=== PATIENT | male | born 1960 | race Asian ===

== ENCOUNTER 2017-06-06 20:30 | Emergency (ER) | payer MEDICARE ==
[~2017-06-06] VITALS: Ht 185.4 cm; Wt 97.0 kg
[~2017-06-06 20:30] MED LIST: ALLOPURINOL; AMLO10TA2 PO; CIPR500T3 PO; ESOM20CA PO; LORA1TAB PO; LOSA25TA5 PO; LOSARTAN; MORP30TA PO; Maalox/Hyoscyamine/Lidocaine PO; ONDA4TAB10 PO; OXYC-302 PO; POLY17PO5 PO
[2017-06-06 20:36] VITALS: BP 153/92
[2017-06-06] MEDS: HYDROcodone/APAP 5/325 TABLET PO ONE ×2 (22:30→22:43)
[2017-06-06] MEDS ORDERED: HYDROcodone/APAP 5/325 TABLET ONE (22:42)
== END 2017-06-06 22:55 | disposition home or self-care (01) ==
LOC: ED 22:49
DX: S50.01XA Contusion of right elbow, initial encounter (principal); M70.21 Olecranon bursitis, right elbow; S70.11XA Contusion of right thigh, initial encounter; I10 Essential (primary) hypertension; X58.XXXA Exposure to other specified factors, initial encounter; Y93.89 Activity, other specified; Y99.8 Other external cause status; Y92.89 Other specified places as the place of occurrence of the external cause
CPT/HCPCS: 99284

== ENCOUNTER → 2019-12-31 | Outpatient (CLI) | payer MEDICARE ==
[~2019-12-31] MED LIST changes: +ALPRazolam 1MG TAB ONE; -AMLO10TA2 PO; +AMLO10TA8 PO; +GADOTERATE 10 MMOL/20 ML SYR ONE; +LOSA25TA25 PO; -LOSA25TA5 PO; +MORP60TA63 PO
== END | disposition home or self-care (01) ==
LOC: PETCFH 12:38
PROVIDERS: ATTEND Internal Medicine Hematology & Oncology
DX: Z51.11 Encounter for antineoplastic chemotherapy (principal); C48.0 Malignant neoplasm of retroperitoneum; C49.9 Malignant neoplasm of connective and soft tissue, unspecified; N28.9 Disorder of kidney and ureter, unspecified; D63.0 Anemia in neoplastic disease; N18.3 Chronic kidney disease, stage 3 (moderate); R16.0 Hepatomegaly, not elsewhere classified
CPT/HCPCS: 70553; 78815; A9552; A9575

== ENCOUNTER 2020-01-01 07:34 | Day surgery (SDC) | payer MEDICARE ==
[~2020-01-01] VITALS: Ht 185.4 cm; Wt 102.8 kg
[~2020-01-01 07:34] MED LIST changes: -ALPRazolam 1MG TAB ONE; -GADOTERATE 10 MMOL/20 ML SYR ONE; -MORP60TA63 PO
[2020-01-01 08:35] VITALS: BP 170/109
[2020-01-01] MEDS ORDERED: MORP60TA63 PO (08:38)
[2020-01-01] MEDS ORDERED: OXYC-302 PO (08:38)
[2020-01-01] MEDS ORDERED: SODIUM CHLORIDE 0.9% 1,000 ML IV SCH (09:00)
[2020-01-01 09:17] VITALS: BP 163/105
[2020-01-01 09:27] LABS: INTERNATIONAL NORMALIZED RATIO 0.93 (0.93-1.1); PROTHROMBIN TIME 9.8 Seconds (9.6-11.5)
[2020-01-01] MEDS ORDERED: FLUMAZENIL 0.1 MG/1 ML, 5ML ONE (10:04)
[2020-01-01] MEDS ORDERED: NALOXONE 1 MG/ML, 2ML ONE (10:04)
[2020-01-01] MEDS ORDERED: FENTANYL PF 100 MCG/2ML ONE ×2 (10:04)
[2020-01-01] MEDS ORDERED: MIDAZOLAM 1 MG/ML, 5ML ONE (10:04)
== END 2020-01-01 12:20 | disposition home or self-care (01) ==
LOC: OUT 07:34
PROVIDERS: ATTEND Internal Medicine Hematology & Oncology
DX: R16.0 Hepatomegaly, not elsewhere classified (principal); C48.0 Malignant neoplasm of retroperitoneum; D17.79 Benign lipomatous neoplasm of other sites; D63.0 Anemia in neoplastic disease; I12.9 Hypertensive chronic kidney disease with stage 1 through stage 4 chronic kidney disease, or unspecified chronic kidney disease; N18.3 Chronic kidney disease, stage 3 (moderate); F12.10 Cannabis abuse, uncomplicated; Z88.5 Allergy status to narcotic agent; Z90.5 Acquired absence of kidney
CPT/HCPCS: 36415; 47000; 77012; 85610; 88307; 88333; 99156; 99157; J2250; J3010; J7030; J2310

== ENCOUNTER 2020-01-06 15:22 | Emergency (ER) | payer MEDICARE ==
[~2020-01-06] VITALS: Ht 185.4 cm; Wt 103.0 kg
[~2020-01-06 15:22] MED LIST changes: +MORP60TA63 PO
[2020-01-06 16:05] LABS: BASOPHILS # (AUTO) 0.04 x10^3/uL (0-0.1); BASOPHILS % (AUTO) 1 % (0-1); EOSINOPHILS # (AUTO) 0.31 x10^3/uL (0-0.4); EOSINOPHILS % (AUTO) 4 % (1-7); LYMPHOCYTES # (AUTO) 1.53 x10^3/uL (1-3.4); LYMPHOCYTES % (AUTO) 20 % (22-44); MD NO; MEAN CORPUSCULAR HEMOGLOBIN 30.1 pg (27.5-34.5); MEAN CORPUSCULAR HGB CONC 33.4 g/dL (33.2-36.2); MEAN CORPUSCULAR VOLUME 90.3 fL (81-97); MONOCYTES # (AUTO) 0.82 x10^3/uL (0.2-0.8); MONOCYTES % (AUTO) 11 % (2-9); NEUTROPHILS % (AUTO) 65 % (42-75); PLATELET COUNT 287 x10^3/uL (130-400); RED BLOOD COUNT 4.31 x10^6/uL (4.38-5.82); RED CELL DISTRIBUTION WIDTH 14.3 % (9.4-14.8)
[2020-01-06 16:14] LABS: ALBUMIN 3.4 g/dL (3.4-5.0); ANION GAP 6 mmol/L (5-15); CALCIUM 8.5 mg/dL (8.5-10.1); CHLORIDE 108 mmol/L (98-107)
[2020-01-06 16:19] LABS: ALANINE AMINOTRANSFERASE 25 U/L (12-78); ALKALINE PHOSPHATASE 81 U/L (45-117); BILIRUBIN,TOTAL 0.4 mg/dL (0.2-1.0); CREATININE 1.78 mg/dL (0.7-1.3); TOTAL PROTEIN 7.3 g/dL (6.4-8.2)
[2020-01-06 16:21] LABS: MICROSCOPIC AUTO
[2020-01-06 16:58] VITALS: BP 150/92
--- NOTE | 2020-01-06 17:07 | NUR ---
ER ANATOLIY SMYTH AT BEDSIDE, TEST RESULTS AND D/C PLAN DISCUSSED AND QUESTIONS ANSWERED.
--- NOTE | 2020-01-06 17:21 | NUR ---
Patient/Caregiver given discharge instructions and they have confirmed that they understand the instructions. Patient ambulatory with steady gait. PT IN WHEELCHAIR TO D/C.
== END 2020-01-06 17:23 | disposition home or self-care (01) ==
LOC: ED 16:02
DX: R60.0 Localized edema (principal); I11.0 Hypertensive heart disease with heart failure; I50.9 Heart failure, unspecified
CPT/HCPCS: 36415; 71045; 80053; 81001; 83880; 85025; 93970; 99285

== ENCOUNTER 2020-01-15 07:04 | Day surgery (SDC) | payer MEDICARE ==
[~2020-01-15] VITALS: Ht 176.5 cm; Wt 104.5 kg
[2020-01-15] MEDS ORDERED: SODIUM CHLORIDE 0.9% 1,000 ML IV SCH (08:02)
[2020-01-15 08:23] VITALS: BP 160/94
[2020-01-15] MEDS ORDERED: CEFAZOLIN PMX 1GM/50ML 50 ML IV ONE (08:30)
[2020-01-15] MEDS ORDERED: FENTANYL PF 100 MCG/2ML ONE (09:02)
[2020-01-15] MEDS ORDERED: MIDAZOLAM 1 MG/ML, 5ML ONE ×2 (09:02)
[2020-01-15] MEDS ORDERED: NALOXONE 1 MG/ML, 2ML ONE (09:03)
[2020-01-15] MEDS ORDERED: FLUMAZENIL 0.1 MG/1 ML, 5ML ONE (09:03)
[2020-01-15] MEDS ORDERED: LIDOCAINE 1%, 20ML ONE (09:17)
== END 2020-01-15 11:35 | disposition home or self-care (01) ==
LOC: OUT 07:04
PROVIDERS: ATTEND Internal Medicine Hematology & Oncology
DX: C48.0 Malignant neoplasm of retroperitoneum (principal); N18.3 Chronic kidney disease, stage 3 (moderate); F12.90 Cannabis use, unspecified, uncomplicated; Z88.5 Allergy status to narcotic agent; Z85.05 Personal history of malignant neoplasm of liver; Z82.49 Family history of ischemic heart disease and other diseases of the circulatory system
CPT/HCPCS: 36561; 76937; 77001; 99156; 99157; C1788; J0690; J1642; J2250; J3010; J7030; J2310

== ENCOUNTER 2020-02-17 18:46 | Inpatient (IN) | payer MEDICARE ==
[~2020-02-17] VITALS: Ht 185.4 cm; Wt 105.0 kg
--- NOTE | 2020-02-17 19:08 | NUR ---
PT TO ROOM FROM LOBBY
[2020-02-17] MEDS ORDERED: HYDROmorphone 2 MG/ML, 1ML ONE (19:29)
[2020-02-17] MEDS ORDERED: ONDANSETRON 2MG/ML, 2ML ONE (19:29)
[2020-02-17] MEDS ORDERED: SODIUM CHLORIDE FLUSH 10ML SYR IVF ONE (19:30)
[2020-02-17] MEDS ORDERED: ONDANSETRON 2MG/ML, 2ML IVPush ONE (19:30)
[2020-02-17] MEDS: HYDROmorphone 2 MG/ML, 1ML IVPush PRN ×2 (19:54→20:09)
--- NOTE | 2020-02-17 19:59 | NUR ---
RIGHT UPPER CHEST PORT ACCESSED, PT MEDICATED PER AUG.
[2020-02-17 20:05] LABS: MEAN CORPUSCULAR HEMOGLOBIN 29.7 pg (27.5-34.5); MEAN CORPUSCULAR HGB CONC 32.9 g/dL (33.2-36.2); MEAN CORPUSCULAR VOLUME 90.4 fL (81-97); MEAN PLATELET VOLUME 6.8 fL (7.4-10.4); PLATELET COUNT 273 x10^3/uL (130-400); RED BLOOD COUNT 4.02 x10^6/uL (4.38-5.82); RED CELL DISTRIBUTION WIDTH 15.1 % (9.4-14.8)
[2020-02-17 20:17] LABS: ALBUMIN 3.3 g/dL (3.4-5.0); ANION GAP 8 mmol/L (5-15); CALCIUM 8.8 mg/dL (8.5-10.1); CHLORIDE 106 mmol/L (98-107); CREATININE 1.99 mg/dL (0.7-1.3)
[2020-02-17] MEDS ORDERED: KETAMINE 10 MG/ML, 20ML IV ONE (20:19)
[2020-02-17] MEDS ORDERED: KETAMINE 10 MG/ML, 20ML ONE (20:21)
--- NOTE | 2020-02-17 20:32 | NUR ---
elevated creatine, consult josé Patel for CT.
[2020-02-17 20:46] LABS: MD YES
--- NOTE | 2020-02-17 20:46 | NUR ---
PT TRANSPORTED TO CT.
[2020-02-17 20:48] LABS: BAND#(MANUAL) 1.08 x10^3/uL; BANDS%(MANUAL) 5 % (0-7); LYMPH#(MANUAL) 0.43 x10^3/uL (1-3.4); LYMPHS% (MANUAL) 2 % (22-44); MONOS#(MANUAL) 0.86 x10^3/uL (0.3-2.7); MONOS% (MANUAL) 4 % (2-9); SEG#(MANUAL) 19.22 x10^3/uL (1.8-6.8); SEGS% (MANUAL) 89 % (42-75)
[2020-02-17 20:49] LABS: ANISOCYTOSIS 1+
[2020-02-17 20:50] LABS: <PLATELET ESTIMATE> ADEQUATE; SMALL PLATELETS 1+; TOXIC GRAN 1+
--- NOTE | 2020-02-17 20:56 | NUR ---
UNABLE TO LEAVE URINE SAMPLE AT THIS TIME.
[2020-02-17] MEDS ORDERED: MORPHINE SULFATE 4 MG/ML, 1ML IVPush PRN (21:30)
--- NOTE | 2020-02-17 21:30 | NUR ---
CONTINUES TO HAVE PAIN, REPORTED TO MD FOR ORDERS.
[2020-02-17] MEDS ORDERED: MORPHINE SULFATE 4 MG/ML, 1ML ONE (21:32)
[2020-02-17] MEDS ORDERED: CEFTRIAXONE PMX 1GM/50ML 50 ML IV ONE (22:00)
[2020-02-17] MEDS ORDERED: SODIUM CHLORIDE 0.9% 1,000ML IVBOLUS ONE (22:00)
[2020-02-17] MEDS ORDERED: CEFTRIAXONE PMX 1GM/50ML 50 ML ONE (22:05)
[2020-02-17] MEDS ORDERED: ACETAMINOPHEN 325 MG TABLET PO PRN (22:30)
[2020-02-17] MEDS ORDERED: CYCLOBENZAPRINE 10 MG TABLET PO PRN (22:30)
[2020-02-17] MEDS ORDERED: ONDANSETRON 2MG/ML, 2ML IVPush PRN (22:30)
[2020-02-17] MEDS ORDERED: OXYcodone/APAP 5/325MG TABLET PO PRN (22:30)
[2020-02-17] MEDS ORDERED: POLYETHYLENE GLYCOL 17 GM PACKET PO PRN (22:30)
[2020-02-17] MEDS ORDERED: MELATONIN 5 MG TABLET PO PRN (22:30)
[2020-02-17] MEDS ORDERED: hydrALAzine 20 MG/ML, 1ML IVPush PRN (22:30)
[2020-02-17] MEDS ORDERED: DOCUSATE 100 MG CAPSULE PO PRN (22:30)
--- NOTE | 2020-02-17 22:51 | NUR ---
PLEASE CALL JAZZ AT [phone] WHEN UROLOGIST CONSULTS PATIENT.
[2020-02-17] MEDS: LACTATED RINGERS 1,000 ML IV SCH (23:21)
[2020-02-17 23:53] LABS: MICROSCOPIC AUTO
[2020-02-18] MEDS: morphine SULFATE 10 MG/ML, 1ML IVPush PRN ×5 (00:50→08:14)
[2020-02-18 01:28] VITALS: BP 144/87
[2020-02-18 04:44] LABS: MEAN CORPUSCULAR HEMOGLOBIN 29.6 pg (27.5-34.5); MEAN CORPUSCULAR HGB CONC 32.7 g/dL (33.2-36.2); MEAN CORPUSCULAR VOLUME 90.4 fL (81-97); PLATELET COUNT 236 x10^3/uL (130-400); RED BLOOD COUNT 3.88 x10^6/uL (4.38-5.82); RED CELL DISTRIBUTION WIDTH 14.6 % (9.4-14.8)
[2020-02-18 04:52] LABS: ANION GAP 8 mmol/L (5-15); CALCIUM 8.7 mg/dL (8.5-10.1); CHLORIDE 108 mmol/L (98-107)
[2020-02-18 05:51] LABS: MD YES
[2020-02-18 05:53] LABS: <PLATELET ESTIMATE> ADEQUATE; <PLT MORPHOLOGY> NORMAL PLT MORPH; <RBC MORPHOLOGY> NORMAL; BANDS%(MANUAL) 8 % (0-7); EOS#(MANUAL) 0.18 x10^3/uL (0.0-0.4); EOS% (MANUAL) 1 % (1-7); LYMPHS% (MANUAL) 8 % (22-44); MONOS#(MANUAL) 0.53 x10^3/uL (0.3-2.7); MONOS% (MANUAL) 3 % (2-9); SEGS% (MANUAL) 80 % (42-75)
[2020-02-18 08:05] VITALS: BP 115/65
[2020-02-18] MEDS ORDERED: HYDROmorphone 1 MG/ML, 1ML INJ IM PRN (09:00)
[2020-02-18] MEDS: morphine SULFATE 60 MG TABLET.ER PO SCH ×2 (09:37→16:38)
[2020-02-18] MEDS: LACTATED RINGERS 1,000 ML IV SCH (10:16)
[2020-02-18] MEDS ORDERED: CHLORHEXIDINE 15 ML UDC MM ONE (12:00)
[2020-02-18] MEDS ORDERED: MIDAZOLAM 1 MG/ML, 2ML ONE (12:18)
[2020-02-18] MEDS ORDERED: FENTANYL PF 250 MCG/5ML ONE (12:18)
[2020-02-18] MEDS ORDERED: PROMETHAZINE 25 MG/ML, 1ML IVPush PRN (12:30)
[2020-02-18] MEDS ORDERED: hydrALAzine 20 MG/ML, 1ML IV PRN (12:30)
[2020-02-18] MEDS ORDERED: LABETALOL 5MG/ML, 20ML IV PRN (12:30)
[2020-02-18] MEDS ORDERED: PROMETHAZINE 25 MG SUPP PR PRN (12:30)
[2020-02-18] MEDS ORDERED: HYDROmorphone 1 MG/ML, 1ML INJ IVPush PRN (12:30)
[2020-02-18] MEDS ORDERED: ACETAMINOPHEN 325 MG TABLET PO PRN (12:30)
[2020-02-18] MEDS ORDERED: ONDANSETRON 2MG/ML, 2ML IVPush PRN (12:30)
[2020-02-18] MEDS ORDERED: OXYcodone 5 MG/5 ML ORAL.SOL UDC PO PRN (12:30)
[2020-02-18] MEDS ORDERED: FENTANYL PF 100 MCG/2ML IV PRN (12:30)
[2020-02-18] MEDS ORDERED: SUCCINYLCHOLINE 20 MG/ML, 10ML ONE (13:50)
[2020-02-18] MEDS ORDERED: CEFAZOLIN 1,000 MG ONE (13:50)
[2020-02-18] MEDS ORDERED: ONDANSETRON 2MG/ML, 2ML ONE (13:50)
[2020-02-18] MEDS ORDERED: ROCURONIUM 10MG/ML,5ML ONE (13:50)
[2020-02-18] MEDS ORDERED: PROPOFOL 10 MG/ML, 20ML ONE (13:50)
[2020-02-18] MEDS ORDERED: DEXAMETHASONE 4 MG/ML, 1ML ONE (13:50)
[2020-02-18] MEDS ORDERED: GLYCOPYRROLATE 0.2MG/1ML, 5ML ONE (13:50)
[2020-02-18] MEDS ORDERED: NEOSTIGMINE 1 MG/ML, 10ML ONE (13:50)
[2020-02-18 18:45] VITALS: BP 153/94
== END 2020-02-18 19:38 | disposition home or self-care (01) | DRG 660 ==
LOC: ED 21:30 → EDIP 22:03 → 4NE 22:49
PROVIDERS: ADMIT Hospitalist; ATTEND Family Medicine
PROC: 0T778DZ Dilation of Left Ureter with Intraluminal Device, Via Natural or Artificial Opening Endoscopic (ICD-10-PCS; 2020-02-18)
PROC: 0T5B8ZZ Destruction of Bladder, Via Natural or Artificial Opening Endoscopic (ICD-10-PCS; 2020-02-18)
PROC: 0TB78ZX Excision of Left Ureter, Via Natural or Artificial Opening Endoscopic, Diagnostic (ICD-10-PCS; 2020-02-18)
PROC: 0TC78ZZ Extirpation of Matter from Left Ureter, Via Natural or Artificial Opening Endoscopic (ICD-10-PCS; principal; 2020-02-18 14:30)
DX: N13.2 Hydronephrosis with renal and ureteral calculous obstruction (principal); I13.0 Hypertensive heart and chronic kidney disease with heart failure and stage 1 through stage 4 chronic kidney disease, or unspecified chronic kidney disease; F11.20 Opioid dependence, uncomplicated; C48.0 Malignant neoplasm of retroperitoneum; C78.7 Secondary malignant neoplasm of liver and intrahepatic bile duct; C79.89 Secondary malignant neoplasm of other specified sites; N17.9 Acute kidney failure, unspecified; N18.3 Chronic kidney disease, stage 3 (moderate); M17.12 Unilateral primary osteoarthritis, left knee; I50.9 Heart failure, unspecified; G89.4 Chronic pain syndrome; D72.825 Bandemia; D63.8 Anemia in other chronic diseases classified elsewhere; K86.9 Disease of pancreas, unspecified; N32.9 Bladder disorder, unspecified; D72.829 Elevated white blood cell count, unspecified; Z80.0 Family history of malignant neoplasm of digestive organs; Z92.21 Personal history of antineoplastic chemotherapy; Z90.5 Acquired absence of kidney; Z87.442 Personal history of urinary calculi; Z85.89 Personal history of malignant neoplasm of other organs and systems
CPT/HCPCS: 36415; 74018; 74176; 76000; 80048; 81001; 82040; 82360; 83605; 83690; 83735; 84145; 84443; 85025; 87040; 87635; 88300; 88305; 93005; 96374; 96375; 96376; C1726; G0378; J0690; J0696; J1100; J1170; J2250; J2405; J2704; J2710; J3010; C2617; J0330; J2270; J7030; J7120

== ENCOUNTER 2020-04-18 00:05 | Emergency (ER) | payer MEDICARE ==
[~2020-04-18] VITALS: Ht 185.4 cm; Wt 103.8 kg
--- NOTE | 2020-04-18 00:30 | NUR ---
PT AND AMBULATORY TO ROOM AT THIS TIME.
--- NOTE | 2020-04-18 00:58 | NUR ---
60 YO M CC OF BILAT FOOT SWELLING AND PAIN. STATES HE STEPPED ON GOAT HEADS A FEW DAYS AGO. PT WITH HX OF CANCER, CURRENTLY RECEIVING CHEMO Q2 WEEKS ON TUESDAYS WITH NEXT APPOITMENT THIS MONDAY
--- NOTE | 2020-04-18 00:58 | NUR ---
PT IN RAD
[2020-04-18] MEDS ORDERED: SODIUM CHLORIDE FLUSH 10ML SYR IVF ONE (01:00)
[2020-04-18] MEDS ORDERED: ONDANSETRON 2MG/ML, 2ML IVPush ONE (01:00)
[2020-04-18 02:13] LABS: MEAN CORPUSCULAR HEMOGLOBIN 28.3 pg (27.5-34.5); MEAN CORPUSCULAR HGB CONC 31.8 g/dL (33.2-36.2); MEAN PLATELET VOLUME 6.8 fL (7.4-10.4); PLATELET COUNT 188 x10^3/uL (130-400); RED BLOOD COUNT 3.28 x10^6/uL (4.38-5.82); RED CELL DISTRIBUTION WIDTH 21.4 % (9.4-14.8)
[2020-04-18 02:20] LABS: ALANINE AMINOTRANSFERASE 31 U/L (12-78); ALBUMIN 2.9 g/dL (3.4-5.0); ANION GAP 7 mmol/L (5-15); CALCIUM 7.9 mg/dL (8.5-10.1); CHLORIDE 112 mmol/L (98-107); CREATININE 1.44 mg/dL (0.7-1.3)
[2020-04-18 02:24] LABS: ALKALINE PHOSPHATASE 77 U/L (45-117); BILIRUBIN,TOTAL 0.3 mg/dL (0.2-1.0); TOTAL PROTEIN 6.1 g/dL (6.4-8.2)
[2020-04-18 02:39] LABS: MD YES
[2020-04-18] MEDS ORDERED: MORPHINE SULFATE 4 MG/ML, 1ML ONE ×2 (02:43→04:05)
[2020-04-18] MEDS: MORPHINE SULFATE 4 MG/ML, 1ML IVPush PRN ×2 (02:45→04:07)
[2020-04-18 02:49] LABS: BAND#(MANUAL) 0.12 x10^3/uL; BANDS%(MANUAL) 4 % (0-7); BASOS#(MANUAL) 0.06 x10^3/uL (0-0.1); BASOS% (MANUAL) 2 % (0-1); EOS#(MANUAL) 0.06 x10^3/uL (0.0-0.4); EOS% (MANUAL) 2 % (1-7); LYMPH#(MANUAL) 0.84 x10^3/uL (1-3.4); LYMPHS% (MANUAL) 27 % (22-44); METAMYELOCYTES# (MANUAL) 0.03 x10^3/uL (0-0); METAMYELOCYTES% (MANUAL) 1 % (0-1); MONOS#(MANUAL) 0.31 x10^3/uL (0.3-2.7); MONOS% (MANUAL) 10 % (2-9); SEG#(MANUAL) 1.61 x10^3/uL (1.8-6.8); SEGS% (MANUAL) 52 % (42-75)
[2020-04-18 02:50] LABS: OTHER CELLS # (MANUAL) 0.06 x10^3/uL (0-0); OTHER CELLS % (MANUAL) 2 % (0-0)
[2020-04-18 02:51] LABS: ANISOCYTOSIS 1+; POLYCHROMASIA 1+
[2020-04-18 02:53] LABS: <PLATELET ESTIMATE> ADEQUATE; <PLT MORPHOLOGY> NORMAL PLT MORPH
--- NOTE | 2020-04-18 03:09 | NUR ---
PT GIVEN WARM BLANKETS AND MEDICATED FOR PAIN
--- NOTE | 2020-04-18 04:20 | NUR ---
AT BEDSIDE TO DISCUSS RAD RESULTS. PT STATES GOAT HEADS ARE STILL STUCK IN FEET FROM STEPPING IN THEM ALMOST 3 WEEKS AGO. NO FORIEGN OBJECTS NOTED IN FEET UPON RN ASSESSMENTS.
[2020-04-18 05:00] VITALS: BP 149/85
== END 2020-04-18 05:20 | disposition home or self-care (01) ==
LOC: ED 01:29
DX: L03.115 Cellulitis of right lower limb (principal); L03.116 Cellulitis of left lower limb; C49.9 Malignant neoplasm of connective and soft tissue, unspecified; D63.0 Anemia in neoplastic disease; R07.9 Chest pain, unspecified; R94.31 Abnormal electrocardiogram [ECG] [EKG]; I50.9 Heart failure, unspecified; Z90.89 Acquired absence of other organs
CPT/HCPCS: 36415; 71045; 73630; 80053; 83880; 84145; 85025; 87040; 93005; 93970; 96374; 96376; 99285; J2270

== ENCOUNTER 2020-05-28 10:55 | Outpatient (CLI) | payer MEDICARE ==
[~2020-05-28 10:55] MED LIST changes: +AMLO-211 PO; -AMLO10TA8 PO; -CIPR500T3 PO; +CIPR500T4 PO; -OXYC-302 PO; +OXYC1TAB14 PO
[2020-07-29] MEDS ORDERED: PALB75TA PO (15:54)
[2020-07-29] MEDS ORDERED: GABA300C PO (15:54)
[2020-07-29] MEDS ORDERED: ONDA4TAB7 PO (15:55)
[2020-07-29] MEDS ORDERED: FURO-93 PO (15:55)
[2020-08-01] MEDS ORDERED: OXYC5TAB98 PO ×5 (11:33→11:55)
[2020-08-01] MEDS ORDERED: METH-640 PO (11:33)
== END 2020-05-28 23:59 | disposition home or self-care (01) ==
LOC: RAD 10:55
PROVIDERS: ATTEND Internal Medicine Hematology & Oncology
DX: C48.0 Malignant neoplasm of retroperitoneum (principal); K31.89 Other diseases of stomach and duodenum; R16.0 Hepatomegaly, not elsewhere classified; E27.49 Other adrenocortical insufficiency; Z90.5 Acquired absence of kidney
CPT/HCPCS: 74150

== ENCOUNTER 2020-07-22 13:57 | Emergency (ER) | payer MEDICARE ==
[~2020-07-22] VITALS: Ht 182.9 cm; Wt 96.3 kg
[~2020-07-22 13:57] MED LIST changes: +CIPR500T3 PO; -CIPR500T4 PO
[2020-07-22] MEDS ORDERED: ONDANSETRON 2MG/ML, 2ML IVPush ONE (15:00)
[2020-07-22 15:07] LABS: BASOPHILS % (AUTO) 1 % (0-1); EOSINOPHILS % (AUTO) 1 % (1-7); LYMPHOCYTES % (AUTO) 27 % (22-44); MEAN CORPUSCULAR HEMOGLOBIN 29.3 pg (27.5-34.5); MEAN CORPUSCULAR HGB CONC 33.7 g/dL (33.2-36.2); MEAN PLATELET VOLUME 6.9 fL (7.4-10.4); MONOCYTES % (AUTO) 9 % (2-9); NEUTROPHILS % (AUTO) 62 % (42-75); PLATELET COUNT 329 x10^3/uL (130-400); RED BLOOD COUNT 4.52 x10^6/uL (4.38-5.82)
[2020-07-22 15:11] LABS: MD NO
[2020-07-22 15:15] LABS: ALANINE AMINOTRANSFERASE 28 U/L (12-78); ALBUMIN 3.8 g/dL (3.4-5.0); ANION GAP 6 mmol/L (5-15); CALCIUM 8.8 mg/dL (8.5-10.1); CHLORIDE 108 mmol/L (98-107); CREATININE 1.94 mg/dL (0.7-1.3)
[2020-07-22 15:17] LABS: ALKALINE PHOSPHATASE 76 U/L (45-117); BILIRUBIN,TOTAL 0.4 mg/dL (0.2-1.0); TOTAL PROTEIN 7.5 g/dL (6.4-8.2)
--- NOTE | 2020-07-22 15:24 | NUR ---
PT WANTS PAIN MEDS BEFORE CT
[2020-07-22] MEDS ORDERED: HYDROmorphone 1 MG/ML, 1ML INJ ONE ×3 (15:29→17:19)
[2020-07-22] MEDS ORDERED: ONDANSETRON 2MG/ML, 2ML ONE (15:29)
[2020-07-22] MEDS: HYDROmorphone 2 MG/ML, 1ML IVPush PRN ×2 (15:55→16:55)
--- NOTE | 2020-07-22 16:53 | NUR ---
PT MEDICATED PER AUG. PT RESTING IN BED WITH AT PT SIDE. PT VSS
[2020-07-22] MEDS ORDERED: DEXAMETHASONE 4 MG/ML, 1ML IVPush ONE (17:00)
[2020-07-22] MEDS ORDERED: DEXAMETHASONE 4 MG/ML, 1ML ONE (17:10)
[2020-07-22] MEDS ORDERED: HYDROmorphone 2 MG/ML, 1ML IVPush PRN (17:30)
[2020-07-22 17:48] VITALS: BP 132/84
== END 2020-07-22 17:49 | disposition home or self-care (01) ==
LOC: ED 17:40
DX: M51.26 Other intervertebral disc displacement, lumbar region (principal); M54.16 Radiculopathy, lumbar region; M54.41 Lumbago with sciatica, right side; G89.29 Other chronic pain
CPT/HCPCS: 36415; 72131; 72192; 80053; 85025; 96374; 96375; 96376; 99285; J1100; J1170; J2405

== ENCOUNTER → 2020-09-09 | Outpatient (CLI) | payer MEDICARE ==
[~2020-09-09] MED LIST changes: +ALPR1TAB2 PO; -CIPR500T3 PO; +CIPR500T4 PO; +FURO-93 PO; +GABA300C PO; +METH-640 PO; +ONDA4TAB7 PO; +OXYC5TAB98 PO; +PALB75TA PO
== END | disposition home or self-care (01) ==
LOC: RAD 10:23
PROVIDERS: ATTEND Internal Medicine Hematology & Oncology
DX: C48.0 Malignant neoplasm of retroperitoneum (principal); K76.89 Other specified diseases of liver
CPT/HCPCS: 74181

== ENCOUNTER 2020-10-07 21:47 | Emergency (ER) | payer MEDICARE ==
[~2020-10-07] VITALS: Ht 185.4 cm; Wt 104.0 kg
--- NOTE | 2020-10-07 22:50 | NUR ---
PT TO CT
[2020-10-07] MEDS ORDERED: SODIUM CHLORIDE FLUSH 10ML SYR IVF ONE (23:00)
[2020-10-07] MEDS ORDERED: SODIUM CHLORIDE 0.9% 1,000ML IVBOLUS ONE (23:00)
[2020-10-07 23:28] LABS: BASOPHILS % (AUTO) 1 % (0-1); EOSINOPHILS % (AUTO) 2 % (1-7); LYMPHOCYTES % (AUTO) 27 % (22-44); MEAN CORPUSCULAR HEMOGLOBIN 32.3 pg (27.5-34.5); MEAN CORPUSCULAR HGB CONC 35.4 g/dL (33.2-36.2); MEAN PLATELET VOLUME 6.8 fL (7.4-10.4); MONOCYTES % (AUTO) 11 % (2-9); NEUTROPHILS % (AUTO) 60 % (42-75); PLATELET COUNT 213 x10^3/uL (130-400); RED BLOOD COUNT 3.91 x10^6/uL (4.38-5.82); RED CELL DISTRIBUTION WIDTH 16.7 % (9.4-14.8)
[2020-10-07 23:30] LABS: MD NO
[2020-10-07 23:34] LABS: ALANINE AMINOTRANSFERASE 30 U/L (12-78); ALBUMIN 3.4 g/dL (3.4-5.0); ANION GAP 7 mmol/L (5-15); CALCIUM 8.9 mg/dL (8.5-10.1); CHLORIDE 108 mmol/L (98-107); CREATININE 1.38 mg/dL (0.7-1.3)
--- NOTE | 2020-10-07 23:34 | NUR ---
TASK RN: PORT ACCESSED FROM WHICH 1 SET OF BLOOD CULTURES OBTAINED 1L NS THEN ADMINISTERED PER EMAR PATIENT/SPOUSE UPDATED ON ESTIMATED POC SPOUSE WANTED TO CONVEY THAT PATIENT SPECIALISTS HAVE CONVEYED HE SHOULD NOT HAVE CT CONTRAST HE ONLY HAS 1 KIDNEY NOW. ERP MADE AWARE
[2020-10-07 23:39] LABS: ALKALINE PHOSPHATASE 68 U/L (45-117); BILIRUBIN,TOTAL 0.5 mg/dL (0.2-1.0); TOTAL PROTEIN 6.7 g/dL (6.4-8.2); TROPONIN I < 0.015 ng/mL (0.000-0.045)
--- NOTE | 2020-10-08 01:03 | NUR ---
REPORT RECIEVED FROM TITO MUNIZ
[2020-10-08 01:13] VITALS: BP 150/88
== END 2020-10-08 01:30 | disposition home or self-care (01) ==
LOC: ED 22:29
DX: K52.89 Other specified noninfective gastroenteritis and colitis (principal); C49.9 Malignant neoplasm of connective and soft tissue, unspecified; R10.84 Generalized abdominal pain; R51.9 Headache, unspecified; R94.31 Abnormal electrocardiogram [ECG] [EKG]; I11.0 Hypertensive heart disease with heart failure; I50.9 Heart failure, unspecified
CPT/HCPCS: 36415; 70450; 71045; 74176; 80053; 84484; 85025; 87040; 93005; 96360; 99285; J7030

== ENCOUNTER 2020-10-22 10:14 | Outpatient (CLI) | payer MEDICARE | END 2020-10-22 23:59 | disposition home or self-care (01) | LOC: RAD 10:14 | PROVIDERS: ATTEND Internal Medicine Hematology & Oncology | DX: C48.0 Malignant neoplasm of retroperitoneum (principal) | CPT/HCPCS: 76000; J1642 ==

== ENCOUNTER 2020-11-26 21:10 | Emergency (ER) | payer MEDICARE ==
[~2020-11-26] VITALS: Ht 185.4 cm; Wt 106.0 kg
--- NOTE | 2020-11-26 22:57 | NUR ---
"MORE SOB SINCE INCREASED CHEMO MED DOSE AND MORPHINE DEVELOPMENT ARCHITECT CHANGES." NO COUGHING/FEVER 96%, LIPOCARCINOMA PATIENT ECG IN TRIAGE PT AMBULATED TO ROOM. PT UNDER A LOT OF STRESS FROM MULTIPLE FACTORS. ATTACHED TO CARD/SP02/BP MONITORS. VSS. BREATHING EVEN AND UNLABORED. BED IN LOW POSITION. CALL LIGHT WITHIN REACH. RAILS ENGAGED. AT BEDSIDE
--- NOTE | 2020-11-26 23:36 | NUR ---
Patient is resting comfortably in bed. Bed in lowest, rails engaged, call light on lap. Vital Signs within normal limits. WCTM. RETURNED GOODS INSPECTOR AT BEDSIDE. NO ADDITIONAL NEEDS OR QUESTIONS AT THIS TIME. RANDI
[2020-11-26 23:53] LABS: MICROSCOPIC NOT IND
[2020-11-26 23:58] LABS: BASOPHILS % (AUTO) 2 % (0-1); EOSINOPHILS % (AUTO) 2 % (1-7); LYMPHOCYTES % (AUTO) 30 % (22-44); MEAN CORPUSCULAR HEMOGLOBIN 33.4 pg (27.5-34.5); MEAN CORPUSCULAR HGB CONC 35.1 g/dL (33.2-36.2); MEAN PLATELET VOLUME 6.8 fL (7.4-10.4); MONOCYTES % (AUTO) 10 % (2-9); NEUTROPHILS % (AUTO) 57 % (42-75); PLATELET COUNT 273 x10^3/uL (130-400); RED BLOOD COUNT 3.62 x10^6/uL (4.38-5.82)
[2020-11-26 23:59] LABS: MD NO
[2020-11-27 00:05] LABS: ALANINE AMINOTRANSFERASE 27 U/L (12-78); ALBUMIN 3.5 g/dL (3.4-5.0); ANION GAP 7 mmol/L (5-15); CALCIUM 8.7 mg/dL (8.5-10.1); CHLORIDE 110 mmol/L (98-107); CREATININE 1.74 mg/dL (0.7-1.3)
[2020-11-27 00:09] LABS: ALKALINE PHOSPHATASE 79 U/L (45-117); BILIRUBIN,TOTAL 0.3 mg/dL (0.2-1.0); TOTAL PROTEIN 7.5 g/dL (6.4-8.2); TROPONIN I < 0.015 ng/mL (0.000-0.045)
--- NOTE | 2020-11-27 00:32 | NUR ---
Patient is resting comfortably in bed. Bed in lowest, rails engaged, call light on lap. Vital Signs within normal limits. WCTM. AT BEDSIDE. PT IN NAD. WATHING TV. BREATHING EVEN AND UNLABORED.
[2020-11-27 01:43] VITALS: BP 145/85
--- NOTE | 2020-11-27 01:44 | NUR ---
Patient given discharge instructions and they have confirmed that they understand the instructions. Patient ambulatory with steady gait. NAD, all questions answered appropriately, denies additional needs at this time. No personal belongings left in room after discharge.
== END 2020-11-27 01:45 | disposition home or self-care (01) ==
LOC: ED 21:40
DX: K11.7 Disturbances of salivary secretion (principal); Z85.831 Personal history of malignant neoplasm of soft tissue; R94.31 Abnormal electrocardiogram [ECG] [EKG]; I11.0 Hypertensive heart disease with heart failure; I50.9 Heart failure, unspecified; Z90.89 Acquired absence of other organs
CPT/HCPCS: 36415; 71045; 80053; 81003; 83880; 84484; 85025; 85379; 93005; 99285